=== PATIENT | male | born 1985 | race Caucasian/White ===

== ENCOUNTER 2021-10-25 12:48 | Emergency (ER) | payer BC, OTHER ==
[2021-10-25] MEDS ORDERED: Lidocaine 1% 30 ML SDV INJECT ONE (13:02)
[2021-10-25] MEDS ORDERED: Lidocaine 1% 30 ML SDV ONE (13:09)
[2021-10-25] MEDS ORDERED: Diphtheria,Pertussis(Acell),Tetanus Vaccine 0.5 ML Syringe IM ONE (13:51)
== END 2021-10-25 14:01 | disposition home or self-care (01) ==
LOC: VM.ED 12:48
DX: S61.211A Laceration without foreign body of left index finger without damage to nail, initial encounter (principal); F17.210 Nicotine dependence, cigarettes, uncomplicated; Z23 Encounter for immunization; W26.8XXA Contact with other sharp object(s), not elsewhere classified, initial encounter; Y92.009 Unspecified place in unspecified non-institutional (private) residence as the place of occurrence of the external cause
CPT/HCPCS: 12002; 90471; 90715; 99282; 99283

== ENCOUNTER 2022-04-13 21:21 | Emergency (ER) | payer OTHER ==
[2022-04-13] MEDS ORDERED: Take Home: Acetaminophen/HYDROcodone 325-5 MG, 5 Tab Pack PO ONE (21:57)
== END 2022-04-13 22:10 | disposition home or self-care (01) ==
LOC: VM.ED 21:21 → MERGE 21:21 → VM.ED 22:10
DX: S86.001A Unspecified injury of right Achilles tendon, initial encounter (principal); F17.210 Nicotine dependence, cigarettes, uncomplicated; W22.8XXA Striking against or struck by other objects, initial encounter
CPT/HCPCS: 29505; 99283; A9270